=== PATIENT | female | born 1995 | race Two or more races ===

== ENCOUNTER 2023-09-21 13:19 | Emergency (ER) | payer MEDICAID ==
[~2023-09-21] VITALS: Ht 157.5 cm; Wt 63.5 kg
[2023-09-21] MEDS ORDERED: SULF1TAB48 PO (13:37)
[2023-09-21 14:13] VITALS: BP 131/71; TEMP 98.2; O2SAT 97
== END 2023-09-21 14:28 | disposition home or self-care (01) ==
LOC: ER 13:19
DX: L02.415 Cutaneous abscess of right lower limb (principal); Z79.899 Other long term (current) drug therapy
CPT/HCPCS: A4606; A4663

== ENCOUNTER 2023-12-20 14:13 | Emergency (ER) | payer MEDICAID ==
[~2023-12-20] VITALS: Ht 157.5 cm; Wt 63.5 kg
[~2023-12-20 14:13] MED LIST: SULF1TAB48 PO
[2023-12-20] MEDS ORDERED: DEXT15LI PO (16:05)
[2023-12-20] MEDS ORDERED: MOME17SP BNOSTRILS (16:05)
[2023-12-20] MEDS ORDERED: CETI1TAB9 PO (16:05)
[2023-12-20 16:24] VITALS: BP 120/80; O2SAT 98
== END 2023-12-20 16:24 | disposition home or self-care (01) ==
LOC: ER 14:14
DX: R05.9 Cough, unspecified (principal); Z79.899 Other long term (current) drug therapy; Z20.822 Contact with and (suspected) exposure to COVID-19
CPT/HCPCS: 71045; A4606; A4663